=== PATIENT | female | born 2000 | race Caucasian/White ===

== ENCOUNTER 2019-11-13 20:27 | Emergency (ER) | payer MEDICAID ==
[~2019-11-13] VITALS: Ht 165.1 cm; Wt 60.3 kg
[2019-11-13 20:43] VITALS: BP 117/70
--- NOTE | 2019-11-13 20:45 | NUR ---
LAB AT BEDSIDE
--- NOTE | 2019-11-13 20:46 | NUR ---
19 YO F BIB SELF FOR C/C OF LIGHT VAGINAL BLEEDING AND LIGHT CRAMPING X7 DAYS POST POSITIVE PREGANCY TEST 1 WEEK AGO. BLEEDING IS DESCRIBED "BRIGHT RED" WITH VAGINAL DISCHARGE. 1, PARA 0. PT HAS NOT BEEN SEEN BY PRIMARY DOC SINCE POSITIVE TEST. BED LOCKED AND IN LOWEST POSITION. SIDE RAILS X1. NKA NO MED HX NO RX
[2019-11-13 20:53] LABS: BASOPHILS % (AUTO) 0.5 % (0.0-2.0); EOSINOPHILS % (AUTO) 0.3 % (0.0-4.0); HEMATOCRIT 39.6 % (36-48); HEMOGLOBIN 13.1 g/dL (12.0-16.0); LYMPHOCYTES # (AUTO) 2.1 K/uL (2.5-16.5); LYMPHOCYTES % (AUTO) 23.1 % (20.5-51.1); MEAN CORPUSCULAR HEMOGLOBIN 32 pg (27-31); MEAN CORPUSCULAR HGB CONC 33 g/dL (33-37); MONOCYTES # (AUTO) 0.6 K/uL (0.8-1.0); NEUTROPHILS # (AUTO) 6.3 K/uL (1.8-7.7); NEUTROPHILS % (AUTO) 69.1 % (42.2-75.2); PLATELET COUNT (AUTO) 267 K/uL (140-450); RED BLOOD CELL COUNT(AUTO) 4.08 MIL/uL (4.20-5.40); RED CELL DISTRIBUTION WIDTH 12.7 % (11.6-13.7); WHITE BLOOD COUNT (AUTO) 9.2 K/uL (4.8-10.8)
--- NOTE | 2019-11-13 20:57 | NUR ---
US AT BEDSIDE
[2019-11-13 21:07] LABS: CARBON DIOXIDE 24.5 mmol/L (21-32); CREATININE 0.8 mg/dL (0.6-1.3); POTASSIUM 3.5 mmol/L (3.5-5.1)
[2019-11-13 21:12] LABS: APPEARANCE,URINE CLEAR (CLEAR); BILIRUBIN,URINE 1+ (NEGATIVE); BLOOD, URINE NEGATIVE (NEGATIVE); COLOR,URINE YELLOW (YELLOW); LEUKOCYTE ESTERASE ,URINE NEGATIVE (NEGATIVE); NITRITE, URINE NEGATIVE (NEGATIVE); UGLUCOSE NEGATIVE (NEGATIVE)
--- NOTE | 2019-11-13 21:26 | NUR ---
Dr. Munoz examining patient.
[2019-11-13 21:57] VITALS: BP 117/70
--- NOTE | 2019-11-13 21:57 | NUR ---
Patient discharged with v/s stable. Written and verbal after care instructions given and explained. Patient verbalized understanding. Ambulatory with steady gait. All questions addressed prior to discharge. Advised to follow up with PMD.
== END 2019-11-13 21:57 | disposition home or self-care (01) ==
LOC: MED 20:27
DX: O46.8X1 Other antepartum hemorrhage, first trimester (principal); R11.2 Nausea with vomiting, unspecified; F12.10 Cannabis abuse, uncomplicated
CPT/HCPCS: 36415; 76801; 80048; 81003; 81025; 84702; 85025; 86900; 86901; 99284; Q0092

== ENCOUNTER 2020-01-11 17:26 | Emergency (ER) | payer MEDICAID ==
[~2020-01-11] VITALS: Ht 165.1 cm; Wt 59.0 kg
[2020-01-11 17:27] VITALS: BP 111/67
--- NOTE | 2020-01-11 17:33 | NUR ---
PT AMB TO BED 11.
--- NOTE | 2020-01-11 17:57 | NUR ---
Patient being evaluated by FLORENTIN CHENG at bedside.
--- NOTE | 2020-01-11 18:09 | NUR ---
PT SEEN AND D/C BY FLORENTIN CHENG. NO NURSING CARE/SERVICES NEEDED.
[2020-01-11 18:10] VITALS: BP 111/67
== END 2020-01-11 18:09 | disposition home or self-care (01) ==
LOC: MED 17:26
DX: M54.6 Pain in thoracic spine (principal)
CPT/HCPCS: 81002; 81025; 99282